=== PATIENT | male | born 1975 ===

== ENCOUNTER 2019-06-12 13:18 | Emergency (ER) | payer MEDICAID, OTHER ==
[~2019-06-12] VITALS: Ht 182.9 cm; Wt 95.0 kg
--- NOTE | 2019-06-12 13:35 | NUR ---
PT BIB LAW E[employer]CEMENT IN [place] FOR HI BP. 220/114 IN ROUTE. PT STATES HX OF HI BP AND HAS NOT BEEN TAKING MEDICATIONS. PT STATES HE HAS SLIGHT CROWE, NO VISION CHANGES, NO N/V, DENIES TRAUMA TO HEAD. BP NOW 200/111. OFFICER AT BEDSIDE.
[2019-06-12 13:55] LABS: BASOPHILS # (AUTO) 0.04 x10^3/uL (0-0.1); BASOPHILS % (AUTO) 1 % (0-1); EOSINOPHILS # (AUTO) 0.25 x10^3/uL (0-0.4); EOSINOPHILS % (AUTO) 4 % (1-7); LYMPHOCYTES # (AUTO) 1.25 x10^3/uL (1-3.4); LYMPHOCYTES % (AUTO) 21 % (22-44); MD NO; MEAN CORPUSCULAR HEMOGLOBIN 29.7 pg (27.5-34.5); MEAN CORPUSCULAR HGB CONC 33.2 g/dL (33.2-36.2); MEAN CORPUSCULAR VOLUME 89.7 fL (81-97); MEAN PLATELET VOLUME 7.6 fL (7.4-10.4); MONOCYTES # (AUTO) 0.55 x10^3/uL (0.2-0.8); MONOCYTES % (AUTO) 9 % (2-9); NEUTROPHILS # (AUTO) 3.85 x10^3/uL (1.8-6.8); NEUTROPHILS % (AUTO) 65 % (42-75); PLATELET COUNT 352 x10^3/uL (130-400); RED BLOOD COUNT 5.24 x10^6/uL (4.38-5.82); RED CELL DISTRIBUTION WIDTH 13.7 % (9.4-14.8)
[2019-06-12 14:06] LABS: ALBUMIN 4.1 g/dL (3.4-5.0); ANION GAP 5 mmol/L (5-15); CALCIUM 8.6 mg/dL (8.5-10.1); CHLORIDE 109 mmol/L (98-107); CREATININE 1.03 mg/dL (0.7-1.3)
--- NOTE | 2019-06-12 14:08 | NUR ---
TASK RN: MEDS ADMIN PER AUG. PT CONTINUES TO BE HANDCUFFED WITH OFFICER AT BEDSIDE.
[2019-06-12 14:10] LABS: SALICYLATE LEVEL < 1.7 mg/dL (2.8-20.0)
[2019-06-12] MEDS ORDERED: METOPROLOL TARTRATE 50 MG TABLET ONE (15:52)
--- NOTE | 2019-06-12 15:59 | NUR ---
MD AWARE OF BP STILL HIGH AT 196/111. MEDICATED PER ORDERS. PT NOT IN ANY DISTRESS
[2019-06-12] MEDS ORDERED: PLEASE ENTER ALLERGIES MC SCH (16:00)
[2019-06-12] MEDS ORDERED: METOPROLOL TARTRATE 50 MG TABLET PO ONE ×2 (16:00)
[2019-06-12 16:20] VITALS: BP 178/119
--- NOTE | 2019-06-12 16:49 | NUR ---
PT ELOPED. LAW OFFICER LEFT AND WANTED TO BE NOTIFIED WHEN PT WAS DC.
== END 2019-06-12 16:58 | disposition left against medical advice (07) ==
LOC: ED 16:45
DX: I10 Essential (primary) hypertension (principal); F17.200 Nicotine dependence, unspecified, uncomplicated
CPT/HCPCS: 36415; 80048; 80307; 82040; 85025; 99283